=== PATIENT | male | born 1980 | race Caucasian/White ===

== ENCOUNTER 2017-10-09 00:42 | Emergency (ER) | payer BC, OTHER ==
--- NOTE | 2017-10-09 01:06 | PDOC ---
History of Present Illness - General History Source: Patient Exam Limitations: No Limitations - History of Present Illness Initial Comments: 10/09/17 02:19 37-year-old male with no medical history presents to the emergency department complaining of subjective fever, chills, nonproductive cough, sore throat, general malaise 2 days without nausea/vomiting, headaches, dizziness, lightheadedness, facial pain, rhinorrhea, nasal congestion, earaches, neck pains , chest pain, shortness of breath, abdominal pains, urinary symptoms. Patient states his son has recently been diagnosed with influenza/bronchitis. Patient reports he's been able to eat and drink without any difficulties. Timing/Duration: reports: other (x2d) <Viktor Suarez - Last Filed: 10/09/17 04:00> <Raul Valdez - Last Filed: 10/12/17 07:31> - General Stated Complaint: COUGH,FEVER Time Seen by Provider: 10/09/17 01:02 Past History - Past Medical History Anemia: No Asthma: No Cancer: No Cardiac Disorders: No CVA: No COPD: No CHF: No Dementia: No Diabetes: No GI Disorders: No Disorders: No HTN: No Hypercholesterolemia: No Liver Disease: No Seizures: No Thyroid Disease: No - Surgical History Abdominal Surgery: No Appendectomy: No Cardiac Surgery: No Cholecystectomy: No Lung Surgery: No Neurologic Surgery: No Orthopedic Surgery: Yes (OSTEOCHONDROMA REMOVED R THIGH, L BICEPT) - Suicide/Smoking/Psychosocial Hx Smoking History: Never smoked Have you smoked in the past 12 months: No Hx Alcohol Use: Yes (SOCIAL) Drug/Substance Use Hx: No Substance Use Type: Alcohol Hx Substance Use Treatment: No <Viktor Suarez - Last Filed: 10/09/17 04:00> <Raul Valdez - Last Filed: 10/12/17 07:31> - Past Medical History Allergies/Adverse Reactions: Allergies Allergy/AdvReac Type Severity Reaction Status Date / Time Shellfish Allergy Mild Swelling Verified 10/09/17 01:21 Home Medications: Ambulatory Orders NK [No Known Home Medication] 10/09/17 Review of Systems - Review of Systems Able to Perform ROS?: Yes Comments:: 10/09/17 02:18 CONSTITUTIONAL: +chills, maliase Absent: fever, diaphoresis, generalized weakness, loss of appetite HEENT: Absent: rhinorrhea, nasal congestion, throat pain, throat swelling, difficulty swallowing, mouth swelling, ear pain, eye pain, visual Changes CARDIOVASCULAR: Absent: chest pain, loss of consciousness, palpitations, irregular heart rate, peripheral edema RESPIRATORY: +cough Absentshortness of breath, dyspnea with exertion, orthopnea, wheezing, stridor, hemoptysis GASTROINTESTINAL: Absent: abdominal pain, abdominal distension, nausea, vomiting, diarrhea, constipation, melena, hematochezia GENITOURINARY: Absent: dysuria, frequency, urgency, hesitancy, hematuria, flank pain, genital pain MUSCULOSKELETAL: Absent: myalgia, arthralgia, joint swelling SKIN: Absent: rash, itching, pallor HEMATOLOGIC/IMMUNOLOGIC: Absent: easy bleeding, easy bruising, lymphadenopathy, frequent infections Is the patient limited Mongolian proficient: No <Viktor Suarez - Last Filed: 10/09/17 04:00> *Physical Exam - Physical Exam Comments: 10/09/17 02:18 GENERAL: Well developed, well nourished. Awake and alert. No acute distress. HEENT: Normocephalic, atraumatic. PERRLA, EOMI. No conjunctival pallor. Sclera are non- icteric. Moist mucous membranes. Oropharynx is clear. NECK: Supple. Full ROM. No JVD. Carotid pulses 2+ and symmetric, without bruits. No thyromegaly. No lymphadenopathy. CARDIOVASCULAR: Regular rate and rhythm. No murmurs, rubs, or gallops. Distal pulses are 2+ and symmetric. PULMONARY: No evidence of respiratory distress. Lungs clear to auscultation bilaterally. No wheezing, rales or rhonchi. ABDOMINAL: Soft. Non-tender. Non-distended. No rebound or guarding. No organomegaly. Normoactive bowel sounds. MUSCULOSKELETAL Normal range of motion at all joints. No bony deformities or tenderness. No CVA tenderness. EXTREMITIES: No cyanosis. No clubbing. No edema. No calf tenderness. SKIN: Warm and dry. Normal capillary refill. No rashes. No jaundice. NEUROLOGICAL: Alert, awake, appropriate. Cranial nerves 2-12 intact. No deficits to light touch and temperature in face, upper extremities and lower extremities. No motor deficits in the in face, upper extremities and lower extremities. Normoreflexic in the upper and lower extremities. Normal speech. Toes are down- going bilaterally. Gait is normal without ataxia. <Viktor Suarez - Last Filed: 10/09/17 04:00> - Vital Signs Last Vital Signs Temp Pulse Resp BP Pulse Ox 99.4 F 112 H 22 132/84 100 10/09/17 01:00 10/09/17 01:00 10/09/17 01:00 10/09/17 01:00 10/09/17 01:00 <Raul Valdez - Last Filed: 10/12/17 07:31> ED Treatment Course - RADIOLOGY Radiograph Interpretation: 10/09/17 02:21 CXR: 2v NAD <Viktor Suarez - Last Filed: 10/09/17 04:00> - ADDITIONAL ORDERS Additional order review: 10/09/17 01:05 Throat Culture - Final Throat NO BETA HEMOLYTIC STREPTOCOCCI ISOLATED Group A Strep Rapid Antigen - Final 10/09/17 01:05 Influenza Types A,B Antigen (IGOR) - Final Nasopharyngeal Swab - Final <Raul Valdez - Last Filed: 10/12/17 07:31> Medical Decision Making - Medical Decision Making 10/12/17 07:31 The patient was seen and evaluated in conjunction with MARIKA Suarez under my direct supervision, ancillary studies were reviewed. I agree with the plan as outlined by MARIKA Suarez. <Raul Valdez - Last Filed: 10/12/17 07:31> *DC/Admit/Observation/Transfer <Viktor Suarez - Last Filed: 10/09/17 04:00> <Raul Valdez - Last Filed: 10/12/17 07:31> Diagnosis at time of Disposition: Viral pharyngitis, Cough - Discharge Dispostion Disposition: HOME Condition at time of disposition: Fair - Referrals Referrals: ON STAFF,NOT [Primary Care Provider] - Jef Fagan MD [Staff Physician] - - Patient Instructions Printed Discharge Instructions: DI for Cough -- Adult, DI for Viral Pharyngitis Additional Instructions: Increase fluids Tylenol alternating with Motrin as needed for fever Follow up with your physician in 24-48 hours Return to the Er for severe/persistent/worsening symptoms Robitussin for cough as needed Gargle with salt water
[2017-10-09 01:45] VITALS: BP 132/84; PULSE 112; TEMP 99.4; BMI 31.4
== END 2017-10-09 04:56 | disposition home or self-care (01) ==
LOC: JER 00:42
DX: J02.9 Acute pharyngitis, unspecified (principal)
CPT/HCPCS: 71046-TC-FY; 87070; 87430; 87804; 99283-25

== ENCOUNTER 2018-08-17 23:43 | Emergency (ER) | payer OTHER, BC ==
[2018-08-18 00:06] VITALS: BP 135/93; PULSE 85; TEMP 98.1; BMI 32.1
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
[2018-08-18] MEDS ORDERED: IBUPROFEN 400 MG TABLET (FP) PO ONE ×2 (00:12→00:19)
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
== END 2018-08-18 00:48 | disposition home or self-care (01) ==
LOC: JER 23:43
DX: M54.2 Cervicalgia (principal); V43.52XA Car driver injured in collision with other type car in traffic accident, initial encounter; Y93.89 Activity, other specified; Y92.410 Unspecified street and highway as the place of occurrence of the external cause
CPT/HCPCS: 99282-25